=== PATIENT | male | born 1990 | race Caucasian/White ===

== ENCOUNTER 2016-10-08 11:22 | Emergency (ER) | payer BC, OTHER ==
[2016-10-08 11:32] VITALS: BP 132/79
[2016-10-08] MEDS ORDERED: Pantoprazole 40 MG Vial IVPUSH ONE (11:32)
[2016-10-08] MEDS ORDERED: Sodium Chloride 0.9% 1,000 ML IV ONE (11:32)
[2016-10-08] MEDS ORDERED: Ondansetron 4 MG/2 ML SDV IVPUSH ONE (11:32)
--- NOTE | 2016-10-08 11:38 | EDM.PDOC ---
ED HPI GENERAL MEDICAL PROBLEM - General Chief Complaint: Behavioral/Psych Stated Complaint: OVERDOSE ON MEDICATION Time Seen by Provider: 10/08/16 11:37 Source of Information: Reports: Patient - History of Present Illness INITIAL COMMENTS - FREE TEXT/NARRATIVE: HISTORY AND PHYSICAL: History of present illness: [] Patient presents ambulatory with no altered mental status or tendinitis states he took 100 aspirin at 3 AM last night with apparent suicide attempt States he has had an episode of vomiting blood otherwise no fever chills sweats chest pain shortness breath headache dizziness or palpitation no bowel or urine symptoms Review of systems: As per history of present illness and below otherwise all systems reviewed and negative. Past medical history: As per history of present illness and as reviewed below otherwise noncontributory. Surgical history: As per history of present illness and as reviewed below otherwise noncontributory. Social history: No reported history of drug or alcohol abuse. Family history: As per history of present illness and as reviewed below otherwise noncontributory. Physical exam: HEENT: Atraumatic, normocephalic, pupils reactive, negative for conjunctival pallor or scleral icterus, mucous membranes moist, throat clear, neck supple, nontender, trachea midline. Lungs: Clear to auscultation, breath sounds equal bilaterally, chest nontender. Heart: S1S2, regular, negative for clicks, rubs, or JVD. Abdomen: Soft, nondistended, nontender. Negative for masses or hepatosplenomegaly. Negative for costovertebral tenderness. Pelvis: Stable nontender. Genitourinary: Deferred. Rectal: Deferred. Extremities: Atraumatic, negative for cords or calf pain. Neurovascular unremarkable. Neuro: Awake, alert, oriented. Cranial nerves II through XII unremarkable. Cerebellum unremarkable. Motor and sensory unremarkable throughout. Exam nonfocal. Diagnostics: [] Lab as below including ABG, otherwise standard 3C workup EKG Chest one view Therapeutics: [] 1 L normal saline bolus Patient discussed with poison control Patient sent [facility] Impression: [] Suicide attempt by ingestion Definitive disposition and diagnosis as appropriate pending reevaluation and review of above. - Related Data Allergies Allergy/AdvReac Type Severity Reaction Status Date / Time Sulfa (Sulfonamide Allergy Rash Verified 10/08/16 11:32 Antibiotics) Home Meds: Home Meds . [No Known Home Meds] 10/08/16 [History] Past Medical History - Past Health History Medical/Surgical History: Denies Medical/Surgical History - Infectious Disease History Infectious Disease History: Reports: Chicken Pox, Mumps Social & Family History - Family History Family Medical History: Noncontributory - Tobacco Use Smoking Status *Q: Current Every Day Smoker Years of Tobacco use: 9 Packs/Tins Daily: 0.5 - Caffeine Use Caffeine Use: Reports: None - Recreational Drug Use Recreational Drug Use: No ED ROS GENERAL - Review of Systems Review Of Systems: ROS reveals no pertinent complaints other than HPI. ED EXAM, GENERAL - Physical Exam Exam: See Below Course - Vital Signs Last Recorded V/S: Last Vital Signs Temp 37.1 C 10/08/16 11:27 Pulse 131 H 10/08/16 11:27 Resp 24 H 10/08/16 11:27 BP 132/79 10/08/16 11:27 Pulse Ox 96 10/08/16 11:27 - Orders/Labs/Meds Orders: Active Orders 24 hr Category Date Time Status EKG Documentation Completion [RC] STAT Care 10/08/16 11:29 Active Chest 1V Frontal [CR] Stat Exams 10/08/16 11:29 Taken DRUG SCREEN, URINE [URCHEM] Stat Lab 10/08/16 11:58 Uncollected UA W/MICROSCOPIC [URIN] Stat Lab 10/08/16 11:29 Uncollected Labs: Laboratory Tests 10/08/16 10/08/16 10/08/16 Range/Units 11:48 11:48 11:48 WBC 16.09 H (4.0-11.0) K/uL RBC 5.42 (4.50-5.90) M/uL Hgb 17.6 H (13.0-17.0) g/dL Hct 48.9 (38.0-50.0) % MCV 90.2 (80.0-98.0) fL MCH 32.5 H (27.0-32.0) pg MCHC 36.0 (31.0-37.0) g/dL RDW Std Deviation 43.6 (28.0-62.0) fl RDW Coeff of Lois 13 (11.0-15.0) % Plt Count 210 (150-400) K/uL MPV 10.50 (7.40-12.00) fL Neut % (Auto) 80.5 H (48.0-80.0) % Lymph % (Auto) 12.6 L (16.0-40.0) % [place] % (Auto) 6.7 (0.0-15.0) % Eos % (Auto) 0.1 (0.0-7.0) % Baso % (Auto) 0.1 (0.0-1.5) % Neut # (Auto) 13.0 H (1.4-5.7) K/uL Lymph # (Auto) 2.0 (0.6-2.4) K/uL [place] # (Auto) 1.1 H (0.0-0.8) K/uL Eos # (Auto) 0.0 (0.0-0.7) K/uL Baso # (Auto) 0.0 (0.0-0.1) K/uL Nucleated RBC % 0.0 /100WBC Nucleated RBCs # 0 K/uL INR (0.86-1.11) APTT (18.6-31.3) SEC ABG pH (7.35-7.45) ABG pCO2 (35-45) mmHG ABG pO2 (75-100) mmHG ABG HCO3 (22-26) mEq/L ABG Total CO2 ABG Base Excess (-2.0-2.0) Sodium 144 (136-146) mmol/L Potassium 3.9 (3.5-5.1) mmol/L Chloride 111 H (98-110) mmol/L Carbon Dioxide 18 L (21-31) mmol/L BUN 13 (6.0-23.0) mg/dL Creatinine 1.1 (0.6-1.5) mg/dL Est Cr Clr Drug Dosing 115.01 mL/min Estimated GFR (MDRD) > 60.0 ml/min Glucose 109 (60-110) mg/dL Calcium 9.6 (8.8-10.8) mg/dL Total Bilirubin 0.3 (0.1-1.5) mg/dL AST 21 (5-40) IU/L ALT 31 (8-54) IU/L Alkaline Phosphatase 49 (40-150) Troponin I < 0.10 (0.0-0.29) NG/ML Total Protein 7.7 (6.0-8.0) g/dL Albumin 5.1 H (3.5-5.0) g/dL Globulin 2.6 (2.0-3.5) g/dL Albumin/Globulin Ratio 2.0 (1.3-2.8) TSH 3rd Generation 1.32 (0.47-5.0) uIU/mL Salicylates 51.7 H* (0-20) mg/dL Acetaminophen < 3.0 ug/mL Ethyl Alcohol < 10.0 mg/dL 10/08/16 10/08/16 Range/Units 11:48 12:30 WBC (4.0-11.0) K/uL RBC (4.50-5.90) M/uL Hgb (13.0-17.0) g/dL Hct (38.0-50.0) % MCV (80.0-98.0) fL MCH (27.0-32.0) pg MCHC (31.0-37.0) g/dL RDW Std Deviation (28.0-62.0) fl RDW Coeff of Lois (11.0-15.0) % Plt Count (150-400) K/uL MPV (7.40-12.00) fL Neut % (Auto) (48.0-80.0) % Lymph % (Auto) (16.0-40.0) % [place] % (Auto) (0.0-15.0) % Eos % (Auto) (0.0-7.0) % Baso % (Auto) (0.0-1.5) % Neut # (Auto) (1.4-5.7) K/uL Lymph # (Auto) (0.6-2.4) K/uL [place] # (Auto) (0.0-0.8) K/uL Eos # (Auto) (0.0-0.7) K/uL Baso # (Auto) (0.0-0.1) K/uL Nucleated RBC % /100WBC Nucleated RBCs # K/uL INR 1.03 (0.86-1.11) APTT 27.1 (18.6-31.3) SEC ABG pH 7.462 H (7.35-7.45) ABG pCO2 32 L (35-45) mmHG ABG pO2 91 (75-100) mmHG ABG HCO3 23 (22-26) mEq/L ABG Total CO2 19.1 ABG Base Excess -0.7 (-2.0-2.0) Sodium (136-146) mmol/L Potassium (3.5-5.1) mmol/L Chloride (98-110) mmol/L Carbon Dioxide (21-31) mmol/L BUN (6.0-23.0) mg/dL Creatinine (0.6-1.5) mg/dL Est Cr Clr Drug Dosing mL/min Estimated GFR (MDRD) ml/min Glucose (60-110) mg/dL Calcium (8.8-10.8) mg/dL Total Bilirubin (0.1-1.5) mg/dL AST (5-40) IU/L ALT (8-54) IU/L Alkaline Phosphatase (40-150) Troponin I (0.0-0.29) NG/ML Total Protein (6.0-8.0) g/dL Albumin (3.5-5.0) g/dL Globulin (2.0-3.5) g/dL Albumin/Globulin Ratio (1.3-2.8) TSH 3rd Generation (0.47-5.0) uIU/mL Salicylates (0-20) mg/dL Acetaminophen ug/mL Ethyl Alcohol mg/dL Meds: Medications Discontinued Medications Generic Name Dose Route Start Last Admin Trade Name Freq PRN Reason Stop Dose Admin Sodium Chloride 1,000 mls @ 999 mls/hr 10/08/16 11:32 10/08/16 12:09 Normal Saline IV 10/08/16 12:32 999 mls/hr STAT ONE Administration Ondansetron HCl 8 mg 10/08/16 11:32 10/08/16 12:09 Zofran IVPUSH 10/08/16 11:33 8 mg ONETIME ONE Administration Pantoprazole Sodium 80 mg 10/08/16 11:32 10/08/16 12:09 Protonix Iv IVPUSH 10/08/16 11:33 80 mg .BOLUS ONE Administration Sodium Bicarbonate 150 meq 10/08/16 12:35 Sodium Bicarbonate 8.4% IVPUSH 10/08/16 12:36 ONETIME ONE Departure - Departure Time of Disposition: 12:42 Disposition: Home, Self-Care 01 Condition: good Clinical Impression: Suicide attempt by drug ingestion, Self-harm - Discharge Information Referrals: PCP,None [Primary Care Provider] - Forms: ED Department Discharge - My Orders Last 24 Hours: My Active Orders 10/08/16 11:29 EKG Documentation Completion [RC] STAT Chest 1V Frontal [CR] Stat UA W/MICROSCOPIC [URIN] Stat 10/08/16 11:58 DRUG SCREEN, URINE [URCHEM] Stat - Assessment/Plan Last 24 Hours: My Active Orders 10/08/16 11:29 EKG Documentation Completion [RC] STAT Chest 1V Frontal [CR] Stat UA W/MICROSCOPIC [URIN] Stat 10/08/16 11:58 DRUG SCREEN, URINE [URCHEM] Stat
[2016-10-08 12:16] LABS: CHLORIDE,CL 111 mmol/L (98-110); SODIUM,NA 144 mmol/L (136-146)
[2016-10-08 12:28] LABS: ACETAMINOPHEN < 3.0 ug/mL
[2016-10-08] MEDS ORDERED: Sodium Bicarbonate 8.4% 50 MEQ/50 ML Syringe IVPUSH ONE (12:35)
--- NOTE | 2016-10-09 16:42 | CR ---
EXAM DATE: 10/08/16 PATIENT'S AGE: 25 Patient: ANGEL COON Facility: [place], [place] Site . Site : 1990 Study: XRay Chest [id number]/21/2017 11:55:42 AM Ordering Physician: Doctor Ramirez Final Report: HISTORY: Chest pain. Findings: Single AP view of the chest is provided. The lungs are normally expanded and clear. There is no evidence for pleural effusion or pneumothorax. Cardiac silhouette size is within normal limits. Impression: Clear lungs. Dictated by Adalid Hernandez MD @ Oct 08 2016 12:05PM (Electronic Signature) Report Signed by Proxy. CHATA
== END 2016-10-08 13:05 ==
LOC: MW.ED 11:22
DX: T39.012A Poisoning by aspirin, intentional self-harm, initial encounter (principal); F17.210 Nicotine dependence, cigarettes, uncomplicated; Z88.2 Allergy status to sulfonamides
CPT/HCPCS: 36415; 36600; 71010; 80053; 80305; 81001; 82803; 84443; 84484; 85025; 85610; 85730; 93005; 96361; 96374; 96375; 99285; C9113; G0480; J2405; J7040; 99283

== ENCOUNTER 2017-01-24 17:31 | Emergency (ER) | payer OTHER ==
[2017-01-24] MEDS ORDERED: Ketorolac 30 MG/ML SDV IVPUSH ONE (18:44)
[2017-01-24] MEDS ORDERED: Sodium Chloride 0.9% 1,000 ML IV ONE (18:44)
[2017-01-24 19:33] LABS: CHLORIDE,CL 109 mmol/L (98-110); SODIUM,NA 142 mmol/L (136-146)
--- NOTE | 2017-01-24 19:35 | EDM.PDOC ---
ED HPI GENERAL MEDICAL PROBLEM - General Chief Complaint: Abdominal Pain Stated Complaint: ABDOMNICAL PAIN Time Seen by Provider: 01/24/17 17:33 Source of Information: Reports: Patient History Limitations: Reports: No Limitations - History of Present Illness INITIAL COMMENTS - FREE TEXT/NARRATIVE: History of present illness: 26-year-old male comes in complaining of right upper quadrant pain. Indicates it 's gotten progressively worse over the last 3 days to the point that he becomes nauseated and vomits. Patient indicates that it is worse after meals and after the initial spike of 8/10 for approximately an hour and received to a 4-6/10. Review of systems: As per history of present illness and below otherwise all systems reviewed and negative. Past medical history: As per history of present illness and as reviewed below otherwise noncontributory. Surgical history: As per history of present illness and as reviewed below otherwise noncontributory. Social history: No reported history of drug or alcohol abuse. Family history: As per history of present illness and as reviewed below otherwise noncontributory. Physical exam: HEENT: Atraumatic, normocephalic, pupils reactive, negative for conjunctival pallor or scleral icterus, mucous membranes moist, throat clear, neck supple, nontender, trachea midline. Lungs: Clear to auscultation, breath sounds equal bilaterally, chest nontender. Sporadic cough with noted increase in pain status post cough. Heart: S1S2, regular, negative for clicks, rubs, or JVD. Abdomen: Soft, protuberant with right upper quadrant tenderness. Negative for masses or hepatosplenomegaly. Negative for costovertebral tenderness. Pelvis: Stable nontender. Genitourinary: Deferred. Rectal: Deferred. Extremities: Atraumatic, negative for cords or calf pain. Neurovascular unremarkable. Neuro: Awake, alert, oriented. Cranial nerves II through XII unremarkable. Cerebellum unremarkable. Motor and sensory unremarkable throughout. Exam nonfocal. Diagnostics: [CBC, CMP, UA, CT of abdomen] Therapeutics: [IV fluid, Toradol, Zofran] Impression: [#1 bronchitis #2 costochondritis] Plan: [Inhaler, spacer, Medrol Dosepak, T3 for night] Definitive disposition and diagnosis as appropriate pending reevaluation and review of above. abdomen Pain Score (Numeric/FACES): 3 - Related Data Allergies Allergy/AdvReac Type Severity Reaction Status Date / Time Sulfa (Sulfonamide Allergy Rash Verified 01/24/17 17:50 Antibiotics) Home Meds: Home Meds Albuterol Sulfate [Proair Hfa] 2 puff IH Q6HR #1 hfa.aer.ad 01/24/17 [Rx] FLUoxetine [PROzac] 20 mg PO DAILY 01/24/17 [History] Inhaler, Assist Devices [Space Chamber Plus] 1 each MC ASDIRECTED #1 spacer 11/04 [Rx] methylPREDNISolone [Medrol] 4 mg PO DAILY #21 tab.ds.pk 01/24/17 [Rx] Past Medical History - Past Health History Medical/Surgical History: Denies Medical/Surgical History - Infectious Disease History Infectious Disease History: Reports: Chicken Pox, Mumps Social & Family History - Family History Family Medical History: Noncontributory - Tobacco Use Smoking Status *Q: Current Every Day Smoker Years of Tobacco use: 12 Packs/Tins Daily: 1 - Caffeine Use Caffeine Use: Reports: Coffee - Recreational Drug Use Recreational Drug Use: No ED ROS GENERAL - Review of Systems Review Of Systems: See Below (See history of present illness) ED EXAM, GI/ABD - Physical Exam Exam: See Below (See history of present illness) Course - Vital Signs Last Recorded V/S: Last Vital Signs Temp 36.6 C 01/24/17 20:58 Pulse 56 L 01/24/17 20:58 Resp 16 01/24/17 20:58 BP 113/57 L 01/24/17 20:58 Pulse Ox 99 01/24/17 20:58 - Orders/Labs/Meds Orders: Active Orders 24 hr Category Date Time Status Abdomen Pelvis w Cont [CT] Stat Exams 01/24/17 18:53 Taken Labs: Laboratory Tests 01/24/17 01/24/17 01/24/17 Range/Units 18:56 18:56 19:40 WBC 10.37 (4.0-11.0) K/uL RBC 4.95 (4.50-5.90) M/uL Hgb 16.0 (13.0-17.0) g/dL Hct 44.9 (38.0-50.0) % MCV 90.7 (80.0-98.0) fL MCH 32.3 H (27.0-32.0) pg MCHC 35.6 (31.0-37.0) g/dL RDW Std Deviation 43.1 (28.0-62.0) fl RDW Coeff of Lois 13 (11.0-15.0) % Plt Count 193 (150-400) K/uL MPV 10.50 (7.40-12.00) fL Neut % (Auto) 54.3 (48.0-80.0) % Lymph % (Auto) 36.2 (16.0-40.0) % [place] % (Auto) 7.6 (0.0-15.0) % Eos % (Auto) 1.7 (0.0-7.0) % Baso % (Auto) 0.2 (0.0-1.5) % Neut # (Auto) 5.6 (1.4-5.7) K/uL Lymph # (Auto) 3.8 H (0.6-2.4) K/uL [place] # (Auto) 0.8 (0.0-0.8) K/uL Eos # (Auto) 0.2 (0.0-0.7) K/uL Baso # (Auto) 0.0 (0.0-0.1) K/uL Nucleated RBC % 0.0 /100WBC Nucleated RBCs # 0 K/uL Sodium 142 (136-146) mmol/L Potassium 3.9 (3.5-5.1) mmol/L Chloride 109 (98-110) mmol/L Carbon Dioxide 24 (21-31) mmol/L BUN 16 (6.0-23.0) mg/dL Creatinine 0.9 (0.6-1.5) mg/dL Est Cr Clr Drug Dosing 139.33 mL/min Estimated GFR (MDRD) > 60.0 ml/min Glucose 90 (60-110) mg/dL Calcium 9.7 (8.8-10.8) mg/dL Total Bilirubin 0.4 (0.1-1.5) mg/dL AST 18 (5-40) IU/L ALT 24 (8-54) IU/L Alkaline Phosphatase 53 (40-150) Total Protein 7.4 (6.0-8.0) g/dL Albumin 4.7 (3.5-5.0) g/dL Globulin 2.7 (2.0-3.5) g/dL Albumin/Globulin Ratio 1.7 (1.3-2.8) Amylase 42 (10-90) U/L Lipase 33 (7-80) U/L Urine Color YELLOW Urine Appearance CLEAR Urine pH 6.0 (5.0-8.0) Ur Specific [place] 1.025 (1.001-1.035) Urine Protein NEGATIVE (NEGATIVE) mg/dL Urine Glucose (UA) NEGATIVE (NEGATIVE) mg/dL Urine Ketones NEGATIVE (NEGATIVE) mg/dL Urine Occult Blood NEGATIVE (NEGATIVE) Urine Nitrite NEGATIVE (NEGATIVE) Urine Bilirubin NEGATIVE (NEGATIVE) Urine Urobilinogen 0.2 (<2.0) EU/dL Ur Leukocyte Esterase TRACE (NEGATIVE) Urine RBC 0-2 (0-2/HPF) Urine WBC 4-8 (0-5/HPF) Ur Epithelial Cells FEW (NONE-FEW) Urine Bacteria FEW (NEGATIVE) Urine Mucus LIGHT (NONE-MOD) Meds: Medications Discontinued Medications Generic Name Dose Route Start Last Admin Trade Name Freq PRN Reason Stop Dose Admin Sodium Chloride 1,000 mls @ 999 mls/hr 01/24/17 18:44 01/24/17 18:59 Normal Saline IV 01/24/17 19:44 999 mls/hr STAT ONE Administration Iopamidol 100 ml 01/24/17 20:30 01/24/17 20:38 Isovue Multipack-370 (76%) IVPUSH 01/24/17 20:31 100 ml ONETIME STA Administration Ketorolac Tromethamine 30 mg 01/24/17 18:44 01/24/17 19:00 Toradol IVPUSH 01/24/17 18:45 30 mg ONETIME ONE Administration Departure - Departure Time of Disposition: 21:45 Disposition: Home, Self-Care 01 Condition: Good Clinical Impression: Bronchitis, Costochondritis - Discharge Information Referrals: PCP,None [Primary Care Provider] - Forms: ED Department Discharge Additional Instructions: The following information is given to patients seen in the emergency department who are being discharged to home. This information is to outline your options for follow-up care. We provide all patients seen in our emergency department with a follow-up referral. The need for follow-up, as well as the timing and circumstances, are variable depending upon the specifics of your emergency department visit. If you don't have a primary care physician on staff, we will provide you with a referral. We always advise you to contact your personal physician following an emergency department visit to inform them of the circumstance of the visit and for follow-up with them and/or the need for any referrals to a consulting specialist. The emergency department will also refer you to a specialist when appropriate. This referral assures that you have the opportunity for follow-up care with a specialist. All of these measure are taken in an effort to provide you with optimal care, which includes your follow-up. Under all circumstances we always encourage you to contact your private physician who remains a resource for coordinating your care. When calling for follow-up care, please make the office aware that this follow-up is from your recent emergency room visit. If for any reason you are refused follow-up, please contact the [facility] Emergency Department at and asked to speak to the emergency department charge nurse. Take medication as directed Follow-up with PCP 1-2 days Return to ED as needed as discussed - My Orders Last 24 Hours: My Active Orders 01/24/17 18:53 Abdomen Pelvis w Cont [CT] Stat - Assessment/Plan Last 24 Hours: My Active Orders 01/24/17 18:53 Abdomen Pelvis w Cont [CT] Stat
[2017-01-24] MEDS ORDERED: Iopamidol 755 MG/ML 500 ML Multipack Bottle IVPUSH STA (20:30)
[2017-01-24 22:10] VITALS: BP 118/62
--- NOTE | 2017-01-25 17:11 | CT ---
EXAM DATE: 01/24/17 PATIENT'S AGE: 26 Patient: ANGEL COON Facility: [place], [place] Site . Site : 1990 Study: CT Abdomen/Pelvis W CONT [id number]/6/[id number] 8:53:48 PM Ordering Physician: Doctor Ramirez Final Report: INDICATION: ABDOMINAL PAIN WITH NAUSEA AND VOMITING TECHNIQUE: CT abdomen and pelvis acquired with IV contrast. 100 ML ISOVUE 370 COMPARISON: None FINDINGS: Lower chest: Unremarkable. Liver: Unremarkable. Spleen: Unremarkable. Pancreas: Unremarkable. Gallbladder and bile ducts: Unremarkable. Kidneys: Unremarkable. Adrenal glands: Unremarkable. GI tract: Unremarkable. Appendix is normal. Vascular structures: Negative. No sign of aneurysm. Lymph nodes: Unremarkable. Miscellaneous: Unremarkable. No free air or significant free fluid. Pelvic Organs: Unremarkable. Bones: Unremarkable for age. IMPRESSION: No acute abnormality of the abdomen and pelvis. Dictated by Carlos Villalpando MD @ 01/24/2017 9:21:02 PM Dictated by: Carlos Villalpando MD @ 01/24/2017 21:24:46 (Electronic Signature) Report Signed by Proxy. UNITED HEALTH SERVICESJessica
== END 2017-01-24 22:07 | disposition home or self-care (01) ==
LOC: MW.ED 17:31
DX: J40 Bronchitis, not specified as acute or chronic (principal); M94.0 Chondrocostal junction syndrome [Tietze]; F17.210 Nicotine dependence, cigarettes, uncomplicated; Z79.899 Other long term (current) drug therapy; Z88.2 Allergy status to sulfonamides
CPT/HCPCS: 74177; 80053; 81001; 82150; 83690; 85025; 96361; 96374; 99284; J1885; J7040; Q9967; 99282

== ENCOUNTER 2017-09-18 18:54 | Emergency (ER) | payer OTHER ==
[2017-09-18] MEDS ORDERED: Ketorolac 30 MG/ML SDV IVPUSH ONE (19:16)
[2017-09-18] MEDS ORDERED: Sodium Chloride 0.9% 1,000 ML IV ONE (19:16)
[2017-09-18] MEDS ORDERED: Diphtheria,Pertussis(Acell),Tetanus Vaccine 0.5 ML Syringe IM ONE (19:24)
[2017-09-18] MEDS ORDERED: Bacitracin Oint 1 GM U/D Packet TOP ONE (19:24)
[2017-09-18] MEDS ORDERED: Lidocaine 1% 20 ML MDV INJECT ONE (19:24)
--- NOTE | 2017-09-18 19:24 | EDM.PDOC ---
ED HPI GENERAL MEDICAL PROBLEM - General Chief Complaint: Laceration Stated Complaint: FALL/LACERATION BRUISED RT EYE Time Seen by Provider: 09/18/17 19:12 Source of Information: Reports: Patient History Limitations: Reports: No Limitations - History of Present Illness INITIAL COMMENTS - FREE TEXT/NARRATIVE: HISTORY AND PHYSICAL: History of present illness: Patient is a 26-year-old male who presents to the emergency room after a syncopal events and falling hitting his face. He states he was getting up to use the bathroom and "the next thing I knew I was on the ground". He does have 2 small lacerations across the bridge of his nose along with bruising and swelling around the right orbit. Prior to his syncopal episode he had no complaints or concerns and was feeling overall well. Unsure of his last tetanus Review of systems: As per history of present illness and below otherwise all systems reviewed and negative. Past medical history: As per history of present illness and as reviewed below otherwise noncontributory. Surgical history: As per history of present illness and as reviewed below otherwise noncontributory. Social history: No reported history of drug or alcohol abuse. Family history: As per history of present illness and as reviewed below otherwise noncontributory. Physical exam: General: Well-developed and well-nourished 26-year-old male. Alert and oriented. Nontoxic appearing and in no acute distress. HEENT: Deformity noted to the bridge of the nose along with soft tissue swelling. Bruising and swelling noted around the right orbit. Patient is able to open the right eye without assistance. 2 cm superficial laceration above the lash line, this is partial thickness and does not go through the lid itself. No intraocular entrapment noted has range of motion. Globe is intact, no injury or hyphema. Two parellel lacerations along the bridge of the nose, 1.5 cm and 1 cm. Small puncate noted to top of scalp along hairline. Otherwise he is normocephalic, pupils equal and reactive bilaterally, negative for conjunctival pallor or scleral icterus, mucous membranes moist, throat clear, neck supple, nontender, trachea midline. No drooling or trismus noted. No meningeal signs Lungs: Clear to auscultation, breath sounds equal bilaterally, chest nontender. Heart: S1S2, regular rate and rhythm without overt murmur Abdomen: Soft, nondistended, nontender. Negative for masses or hepatosplenomegaly. Negative for costovertebral tenderness. Pelvis: Stable nontender. Genitourinary: Deferred. Rectal: Deferred. Skin: See HEENT assessment, other skin is intact, warm, dry. No lesions or rashes noted. Extremities: Moves all per self without difficulty or deficits. Full ROM and negative for cords or calf pain. Neurovascular unremarkable. Neuro: Awake, alert, oriented. Cranial nerves II through XII unremarkable. Cerebellum unremarkable. Motor and sensory unremarkable throughout. Exam nonfocal. Notes: CT of the facial bone shows a comminuted bilateral nasal bone fracture with a leftward angulation trace right orbital emphysema is present. CT is unremarkable with no fracture, bleeding or masses. Cervical spine is unremarkable. Labs, EKG, and CXR are unremarkable. Vital signs are stable. Orthostatics are unremarkable. The Rocephin for open fracture given in the ER. This information was shared with the patient. I did offer the patient admission for observation as he did have an unexplained syncopal event. He declines admission. He is aware of the risks of being discharged at this time, except those risks. The lacerations above the nose were cleansed with chlorhexidine. 1% lidocaine was used to anesthetize the area. Sterile technique and customary procedures were followed. Lower laceration was closed with 4-0 Nylon, #2 interrupted sutures. Upper laceration was closed with 4-0 Nylon, #3 interrupt sutures. Patient tolerated well. 2 cm superficial laceration above the lash line, this is partial thickness and does not go through the lid itself. The orbit is intact and has full ROM of all orbital muscles. No pain with ROM. Dr Lr ( Opthamologist on-call) was consulted on this case about the "Trace right orbital emphysema being present". I did share his physical findings along with the patient's history and he states that there does not appear to be any need for acute intervention. He would like to see the patient tomorrow at 3 PM, for further evaluation and reexamination. All this information was shared with the patient. I'll prescribe Hoagland, Zofran and Keflex. Diagnostics: CBC, CMP, troponin, KG, one view chest, head CT, cervical spine CT, maxillofacial CT orthostatic vital signs Therapeutics: Tdap, NS, Toradol, tetanus, lidocaine, Rocephin Impression: Head Injury Nasal bone fracture Syncope Plan: 1. Please review and follow the head injury instructions that were given to you. 2. Rest and ice to painful areas. Tylenol and/or ibuprofen as needed for pain management. A prescription for Hoagland has been given to you for moderate to severe pain. You may take 1-2 tablets every 4-6 hours. This medication is a narcotic and will cause drowsiness so do not take it while driving or needing to be functioning outside of the house. Zofran as needed for nausea prevention. 3. Dr. Lr, Mica Builder from [facility], was informed of your case to see you tomorrow around 3 PM for reevaluation of your right eye. 4. Please follow-up with your primary care provider or the plastic surgeon for further evaluation and management. Return to the ED as needed and as discussed. Definitive disposition and diagnosis as appropriate pending reevaluation and review of above. Onset: Today Duration: Minutes: Location: Reports: Head facial area Pain Score (Numeric/FACES): 7 - Related Data Allergies Allergy/AdvReac Type Severity Reaction Status Date / Time Sulfa (Sulfonamide Allergy Rash Verified 09/18/17 19:09 Antibiotics) Home Meds: Home Meds . [No Known Home Meds] 09/18/17 [History] Past Medical History - Past Health History Medical/Surgical History: Denies Medical/Surgical History - Infectious Disease History Infectious Disease History: Reports: Chicken Pox, Mumps Social & Family History - Family History Family Medical History: Noncontributory - Tobacco Use Smoking Status *Q: Current Every Day Smoker Years of Tobacco use: 12 Packs/Tins Daily: 1 - Caffeine Use Caffeine Use: Reports: Coffee - Recreational Drug Use Recreational Drug Use: No ED ROS GENERAL - Review of Systems Review Of Systems: ROS reveals no pertinent complaints other than HPI. ED EXAM, SKIN/RASH Exam: See Below (See dictation) Course - Vital Signs Last Recorded V/S: Last Vital Signs Temp 98 F 09/18/17 19:10 Pulse 88 09/18/17 19:10 Resp 18 09/18/17 19:10 BP 126/68 09/18/17 19:10 Pulse Ox 98 09/18/17 19:10 Orthostatic Blood Pressure [] 103/73 Orthostatic Blood Pressure [] 110/62 Orthostatic Blood Pressure [] 118/62 - Orders/Labs/Meds Orders: Active Orders 24 hr Category Date Time Status EKG Documentation Completion [RC] STAT Care 09/18/17 19:16 Active Orthostatic Vital Signs [RC] ASDIRECTED Care 09/18/17 19:16 Active Vaccines to be Administered [RC] PER UNIT ROUTINE Care 09/18/17 19:24 Active Cervical Spine wo Cont [CT] Stat Exams 09/18/17 19:15 Taken Chest 1V Frontal [CR] Stat Exams 09/18/17 19:16 Taken Head wo Cont [CT] Stat Exams 09/18/17 19:15 Taken Max Facial Sinus wo Cont [CT] Stat Exams 09/18/17 19:15 Taken cefTRIAXone [Rocephin] 1,000 mg Med 09/18/17 21:30 Active Dextrose 5% in Water 50 ml IM ONETIME Medication Orders Ceftriaxone Sodium 1,000 mg/ (Dextrose/Water) 50 mls @ 100 mls/hr IM ONETIME ONE Stop: 09/18/17 21:59 Labs: Laboratory Tests 09/18/17 09/18/17 Range/Units 19:25 19:25 WBC 8.63 (4.0-11.0) K/uL RBC 5.12 (4.50-5.90) M/uL Hgb 16.4 (13.0-17.0) g/dL Hct 46.0 (38.0-50.0) % MCV 89.8 (80.0-98.0) fL MCH 32.0 (27.0-32.0) pg MCHC 35.7 (31.0-37.0) g/dL RDW Std Deviation 43.6 (28.0-62.0) fl RDW Coeff of Lois 13 (11.0-15.0) % Plt Count 188 (150-400) K/uL MPV 10.00 (7.40-12.00) fL Neut % (Auto) 53.8 (48.0-80.0) % Lymph % (Auto) 37.1 (16.0-40.0) % [place] % (Auto) 7.4 (0.0-15.0) % Eos % (Auto) 1.4 (0.0-7.0) % Baso % (Auto) 0.3 (0.0-1.5) % Neut # (Auto) 4.6 (1.4-5.7) K/uL Lymph # (Auto) 3.2 H (0.6-2.4) K/uL [place] # (Auto) 0.6 (0.0-0.8) K/uL Eos # (Auto) 0.1 (0.0-0.7) K/uL Baso # (Auto) 0.0 (0.0-0.1) K/uL Nucleated RBC % 0.0 /100WBC Nucleated RBCs # 0 K/uL Sodium 141 (136-148) mmol/L Potassium 3.4 L (3.5-5.1) mmol/L Chloride 105 (98-107) mmol/L Carbon Dioxide 24.8 (21.0-32.0) mmol/L BUN 13 (7.0-18.0) mg/dL Creatinine 1.0 (0.8-1.3) mg/dL Est Cr Clr Drug Dosing 125.40 mL/min Estimated GFR (MDRD) > 60.0 ml/min Glucose 123 H (74-106) mg/dL Calcium 9.4 (8.5-10.1) mg/dL Total Bilirubin 0.3 (0.2-1.0) mg/dL AST 26 (15-37) IU/L ALT 48 (14-63) IU/L Alkaline Phosphatase 53 (46-116) U/L Troponin I < 0.050 (0.000-0.056) ng/mL Total Protein 7.5 (6.4-8.2) g/dL Albumin 4.6 (3.4-5.0) g/dL Globulin 2.9 (2.0-3.5) g/dL Albumin/Globulin Ratio 1.6 (1.3-2.8) Meds: Medications Generic Name Dose Route Start Last Admin Trade Name Freq PRN Reason Stop Dose Admin Ceftriaxone Sodium 1,000 mg/ 50 mls @ 100 mls/hr 09/18/17 21:30 Dextrose/Water IM 09/18/17 21:59 ONETIME ONE Discontinued Medications Generic Name Dose Route Start Last Admin Trade Name Freq PRN Reason Stop Dose Admin Bacitracin 1 dose 09/18/17 19:24 09/18/17 19:58 Bacitracin Oint 1 Gm TOP 09/18/17 19:25 1 dose ONETIME ONE Administration Diphtheria/Tetanus/Acell Pertussis 0.5 ml 09/18/17 19:24 09/18/17 19:58 Adacel IM 09/18/17 19:25 0.5 ml .ONCE ONE Administration Sodium Chloride 1,000 mls @ 999 mls/hr 09/18/17 19:16 09/18/17 19:57 Normal Saline IV 09/18/17 20:16 999 mls/hr STAT ONE Administration Ceftriaxone Sodium/Dextrose 1 50 mls @ 100 mls/hr 09/18/17 21:10 gm/ Premix IV 09/18/17 21:39 ONETIME ONE Ketorolac Tromethamine 30 mg 09/18/17 19:16 09/18/17 19:58 Toradol IVPUSH 09/18/17 19:17 30 mg ONETIME ONE Administration Lidocaine HCl 20 ml 09/18/17 19:24 09/18/17 19:57 Xylocaine 1% INJECT 09/18/17 19:25 20 ml ONETIME ONE Administration Departure - Departure Time of Disposition: 21:08 Disposition: Home, Self-Care 01 Clinical Impression: Nasal bone fractures Qualifiers: Encounter type: initial encounter Fracture type: open Qualified Code(s): S02.2XXB - Fracture of nasal bones, initial encounter for open fracture Head injury Qualifiers: Encounter type: initial encounter Qualified Code(s): S09.90XA - Unspecified injury of head, initial encounter Syncope Qualifiers: Syncope type: unspecified Qualified Code(s): R55 - Syncope and collapse - Discharge Information Instructions: Nasal Fracture, [id number], Laceration Care, Adult, Easy-to- Read, Syncope, [id number] Referrals: PCP,None [Primary Care Provider] - Forms: ED Department Discharge Additional Instructions: The following information is given to patients seen in the emergency department who are being discharged to home. This information is to outline your options for follow-up care. We provide all patients seen in our emergency department with a follow-up referral. The need for follow-up, as well as the timing and circumstances, are variable depending upon the specifics of your emergency department visit. If you don't have a primary care physician on staff, we will provide you with a referral. We always advise you to contact your personal physician following an emergency department visit to inform them of the circumstance of the visit and for follow-up with them and/or the need for any referrals to a consulting specialist. The emergency department will also refer you to a specialist when appropriate. This referral assures that you have the opportunity for follow-up care with a specialist. All of these measure are taken in an effort to provide you with optimal care, which includes your follow-up. Under all circumstances we always encourage you to contact your private physician who remains a resource for coordinating your care. When calling for follow-up care, please make the office aware that this follow-up is from your recent emergency room visit. If for any reason you are refused follow-up, please contact the [facility] Emergency Department at and asked to speak to the emergency department charge nurse. [facility] [address] [place] [id number] 1. Please review and follow the head injury instructions that were given to you. Stitches to be removed in 5-7 days. Continue to monitor for signs of infection. 2. Rest and ice to painful areas. Tylenol and/or ibuprofen as needed for pain management. A prescription for Hoagland has been given to you for moderate to severe pain. You may take 1-2 tablets every 4-6 hours. This medication is a narcotic and will cause drowsiness so do not take it while driving or needing to be functioning outside of the house. Zofran as needed for nausea prevention. 3. Dr. Lr, Mica Builder from [facility], was informed of your case to see you tomorrow around 3 PM for reevaluation of your right eye. 4. Please follow-up with your primary care provider or the plastic surgeon for further evaluation and management. Return to the ED as needed and as discussed. - My Orders Last 24 Hours: My Active Orders 09/18/17 19:15 Cervical Spine wo Cont [CT] Stat Head wo Cont [CT] Stat Max Facial Sinus wo Cont [CT] Stat 09/18/17 19:16 EKG Documentation Completion [RC] STAT Orthostatic Vital Signs [RC] ASDIRECTED Chest 1V Frontal [CR] Stat 09/18/17 19:24 Vaccines to be Administered [RC] PER UNIT ROUTINE - Assessment/Plan Last 24 Hours: My Active Orders 09/18/17 19:15 Cervical Spine wo Cont [CT] Stat Head wo Cont [CT] Stat Max Facial Sinus wo Cont [CT] Stat 09/18/17 19:16 EKG Documentation Completion [RC] STAT Orthostatic Vital Signs [RC] ASDIRECTED Chest 1V Frontal [CR] Stat 09/18/17 19:24 Vaccines to be Administered [RC] PER UNIT ROUTINE
[2017-09-18 19:53] LABS: CHLORIDE,CL 105 mmol/L (98-107); SODIUM,NA 141 mmol/L (136-148)
[2017-09-18] MEDS ORDERED: cefTRIAXone 1 GM in Premix Bag 1 BAG IV ONE (21:10)
[2017-09-18] MEDS ORDERED: cefTRIAXone 1,000 MG in Dextrose 5% in Water 50 ML IM ONE ×2 (21:30)
[2017-09-18] MEDS ORDERED: cefTRIAXone 1,000 MG in Dextrose 5% in Water 50 ML IV ONE ×2 (21:38)
[2017-09-18 22:19] VITALS: BP 102/72
--- NOTE | 2017-09-19 10:46 | CR ---
EXAM DATE: 09/18/17 PATIENT'S AGE: 26 Patient: ANGEL COON Facility: [place], [place] Site . Site : 1990 Study: XRay Chest [id number]/1/2018 8:02:30 PM Ordering Physician: Doctor Ramirez Final Report: INDICATION: fall/loc INDICATION: Chest pain after fall. TECHNIQUE: Single view. COMPARISON: 10/08/2016. FINDINGS: Heart size is normal. The lungs are free of infiltrate. There is no pneumothorax. No subcutaneous gas is seen. No significant pleural fluid is seen. IMPRESSION: Clear chest. Dictated by Ian Dale MD @ 09/18/2017 8:04:42 PM Dictated by: Ian Dale MD @ 09/18/2017 20:04:51 (Electronic Signature) Report Signed by Proxy. MTDJessica
--- NOTE | 2017-09-19 10:48 | CT ---
EXAM DATE: 09/18/17 PATIENT'S AGE: 26 Patient: ANGEL COON Facility: [place], [place] Site . Site : 1990 Study: CT Head [id number]/1/2018 8:06:21 PM Ordering Physician: Doctor Ramirez Final Report: INDICATION: Fall today and LOC Edema and LAC to R eye and nasal areas INDICATION: Patient with a history of a fall with loss of consciousness and right facial trauma. TECHNIQUE: 3 mm axial imaging has been performed through the brain. Sagittal and coronal reconstructions have been obtained. FINDINGS: The ventricles, sulci, and cisterns are within normal limits. There is no mass lesion, midline shift, or intracerebral hemorrhage identified. Incidental cavum septum pellucidum is identified which is a normal anatomical variant. There is no visualized skull fracture. Comminuted fracture deformity nasal bone is noted. Please see facial bone CT. There is a rounded opacification in the right maxillary sinus. Mastoid air cells are clear. IMPRESSION: 1. No acute intracerebral hemorrhage or midline shift is noted. 2. No visualized skull fracture noted. 3. Comminuted nasal bone fracture is noted. Please see facial bone CT. Dictated by Ian Dale MD @ 09/18/2017 8:16:40 PM Dictated by: Ian Dael MD @ 09/18/2017 20:16:48 (Electronic Signature) Report Signed by Proxy. [facility]
--- NOTE | 2017-09-19 10:49 | CT ---
EXAM DATE: 09/18/17 PATIENT'S AGE: 26 Patient: ANGEL COON Facility: [place], [place] Site . Site : 1990 Study: CT Spine Cervical [id number]/1/2018 8:06:47 PM Ordering Physician: Doctor Ramirez Final Report: INDICATION: Fall with neck pain TECHNIQUE: CT cervical spine without i.v. contrast. Coronal and sagittal reformats were obtained. CONTRAST: None COMPARISON: None FINDINGS: Alignment: Unremarkable. Bone: No acute fractures or aggressive bone lesions are identified. Disc: The disc spaces are unremarkable in appearance. The facet joints are unremarkable. Soft tissue: The prevertebral soft tissues are unremarkable in appearance. The visualized lung apices and mediastinum are unremarkable. IMPRESSION: 1. No acute osseous injuries are identified. Please note that all CT scans at this facility use dose modulation, iterative reconstruction, and/or weight-based dosing when appropriate to reduce radiation dose to as low as reasonably achievable. Dictated by: Tenzin Alex MD @ 09/18/2017 20:16:13 (Electronic Signature) Report Signed by Proxy. [facility]
--- NOTE | 2017-09-19 10:52 | CT ---
EXAM DATE: 09/18/17 PATIENT'S AGE: 26 Patient: ANGEL COON Facility: [place], [place] Site . Site : 1990 Study: CT Facial [id number]/1/2018 8:08:54 PM Ordering Physician: Doctor Ramirez Final Report: INDICATION: Fall today and loss of consciousness, Edema and laceration to right eye and nasal areas TECHNIQUE: CT maxillofacial without i.v. contrast. Coronal and sagittal reformats were obtained. CONTRAST: None COMPARISON: None FINDINGS: Bone: Comminuted bilateral nasal bone fractures are present with leftward angulation. There is a nondisplaced fracture involving the perpendicular plate of the ethmoid bone. Soft tissue emphysema seen along the nasal soft tissues. Joint: The temporomandibular joints are unremarkable in appearance. Sinus: A large retention cyst or polyp seen at the base of the right maxillary sinus. The ostiomeatal units are patent. The nasal turbinates are normal. The nasal septum is midline and intact. Orbit: Trace right orbital emphysema is present. Both globes are unremarkable in appearance by CT. Mild right preseptal swelling and edema is noted. Soft tissue: Unremarkable otherwise. IMPRESSIONS: 1. Comminuted bilateral nasal bone fractures are present with leftward angulation. 2. Trace right orbital emphysema is present. Correlation with physical examination is recommended to exclude a puncture injury. Dictated by Tenzin Alex MD @ 09/18/2017 8:22:17 PM Please note that all CT scans at this facility use dose modulation, iterative reconstruction, and/or weight-based dosing when appropriate to reduce radiation dose to as low as reasonably achievable. Dictated by: Tenzin Alex MD @ 09/18/2017 20:22:25 (Electronic Signature) Report Signed by Proxy. [facility]
== END 2017-09-18 22:17 | disposition home or self-care (01) ==
LOC: MW.ED 18:54
DX: S02.2XXA Fracture of nasal bones, initial encounter for closed fracture (principal); S01.21XA Laceration without foreign body of nose, initial encounter; S09.90XA Unspecified injury of head, initial encounter; R55 Syncope and collapse; F17.210 Nicotine dependence, cigarettes, uncomplicated; W18.30XA Fall on same level, unspecified, initial encounter; Z88.2 Allergy status to sulfonamides; Z23 Encounter for immunization
CPT/HCPCS: 12013; 36415; 70450; 70486; 71045; 72125; 80053; 84484; 85025; 90471; 90715; 93005; 96361; 96365; 96375; 99284; J0696; J1885; J7040; J7060

== ENCOUNTER 2017-09-24 14:30 | Emergency (ER) | payer OTHER ==
[2017-09-24 14:47] VITALS: BP 125/77
== END 2017-09-24 14:48 | disposition left against medical advice (07) ==
LOC: MW.ED 14:30
DX: Z53.21 Procedure and treatment not carried out due to patient leaving prior to being seen by health care provider (principal)

== ENCOUNTER 2017-09-27 16:30 | Day surgery (SDC) | payer OTHER ==
[2017-09-27] MEDS ORDERED: Sodium Chloride 0.9% 1,000 ML IV SCH (17:30)
[2017-09-27] MEDS ORDERED: Midazolam 1 MG/ML 2 ML SDV ONE (17:52)
[2017-09-27] MEDS ORDERED: Glycopyrrolate 0.2 MG/ML SDV ONE (17:52)
[2017-09-27] MEDS ORDERED: Ondansetron 4 MG/2 ML SDV ONE (17:52)
[2017-09-27] MEDS ORDERED: fentaNYL 100 MCG/2 ML SDV ONE (17:52)
[2017-09-27] MEDS ORDERED: Propofol 200 MG/20 ML SDV ONE (17:52)
--- NOTE | 2017-09-27 18:26 | PCM.PREANE ---
Preanesthetic Assessment - Anesthesia/Transfusion/Family Hx Anesthesia History: No Prior Anesthesia Family History of Anesthesia Reaction: No Transfusion History: No Prior Transfusion(s) Intubation History: Unknown - Review of Systems General: No Symptoms Pulmonary: No Symptoms Cardiovascular: No Symptoms Gastrointestinal: No Symptoms Neurological: No Symptoms Other: Reports: None - Physical Assessment Height: 1.85 m Weight: 121.926 kg ASA Class: 2E Mental Status: Alert & Oriented x3 Airway Class: Mallampati = 2 Dentition: Reports: Normal Dentition, [place](s) (right upper (back) x1) Thyro-Mental Finger Breadths: 3 Mouth Opening Finger Breadths: 3 ROM/Head Extension: Full Lungs: Clear to Auscultation, Normal Respiratory Effort Cardiovascular: Regular Rate, Regular Rhythm - Allergies Allergies/Adverse Reactions: Allergies Allergy/AdvReac Type Severity Reaction Status Date / Time Sulfa (Sulfonamide Allergy Rash Verified 09/24/17 14:47 Antibiotics) - Blood Blood Available: No - Anesthesia Plan Pre-Op Medication Ordered: None - Acknowledgements Anesthesia Type Planned: General Anesthesia Pt an Appropriate Candidate for the Planned Anesthesia: Yes Alternatives and Risks of Anesthesia Discussed w Pt/Guardian: Yes Pt/Guardian Understands and Agrees with Anesthesia Plan: Yes PreAnesthesia Questionnaire - Past Health History Medical/Surgical History: Denies Medical/Surgical History HEENT History: Reports: Other (See Below) (closed nasal bone fx) Cardiovascular History: Reports: None Respiratory History: Reports: Pneumonia, Recurrent Gastrointestinal History: Reports: None Genitourinary History: Reports: None Musculoskeletal History: Reports: None Neurological History: Reports: None Psychiatric History: Reports: Anxiety, Depression Endocrine/Metabolic History: Reports: Obesity/BMI 30+ Hematologic History: Reports: None Immunologic History: Reports: None Oncologic (Cancer) History: Reports: None Dermatologic History: Reports: None - Infectious Disease History Infectious Disease History: Reports: Chicken Pox, Influenza, Mumps - Past Surgical History Head Surgeries/Procedures: Reports: None - SUBSTANCE USE Smoking Status *Q: Current Every Day Smoker (1/2 ppd) Tobacco Use Within Last Twelve Months: Cigarettes Recreational Drug Use History: No - HOME MEDS Home Medications: Home Meds . [No Known Home Meds] 09/18/17 [History] - CURRENT (IN HOUSE) MEDS Current Meds: Current Medications Sodium Chloride (Normal Saline) 1,000 mls @ 100 mls/hr IV ASDIRECTED THOM Last Admin: 09/27/17 17:44 Dose: 100 mls/hr Discontinued Medications Fentanyl (Sublimaze) Confirm Administered Dose 100 mcg .ROUTE .STK-MED ONE Stop: 09/27/17 17:53 Glycopyrrolate (Robinul) Confirm Administered Dose 0.2 mg .ROUTE .STK-MED ONE Stop: 09/27/17 17:53 Midazolam HCl (Versed 1 Mg/Ml) Confirm Administered Dose 2 mg .ROUTE .STK-MED ONE Stop: 09/27/17 17:53 Ondansetron HCl (Zofran) Confirm Administered Dose 4 mg .ROUTE .STK-MED ONE Stop: 09/27/17 17:53 Propofol (Diprivan 20 Ml) Confirm Administered Dose 400 mg .ROUTE .STK-MED ONE Stop: 09/27/17 17:53
[2017-09-27] MEDS ORDERED: Oxymetazoline 0.05% Nasal Spray 15 ML Bottle ONE (19:21)
--- NOTE | 2017-09-27 19:42 | PCM.OPNOTE ---
- General Post-Op/Procedure Note Date of Surgery/Procedure: 09/27/17 Operative Procedure(s): manipulation under anesthesia of fracture nasal bones Findings: Left nasal bone convexity; R concave and depressed fracture; lower 2/3 of nose to Right Healed abrasions over right nasal bone skin Pre Op Diagnosis: Fracture nasal bones Post-Op Diagnosis: Fracture nasal bones Anesthesia Technique: General LMA Primary Surgeon: Kimberlee Villalba Anesthesia Provider: Magnus Batres Fluid Replacement, Intraop: 600 EBL in mLs: 1 Condition: Good Free Text/Narrative:: An informed consent was obtained and patient was brought back to OR and laid supine. Time out was performed. Anesthesia - LMA Patient was appropriately positioned The Left nasal bone was digitally pushed towards midline. Using a combination of [place] forcep and intranasal butter knife elevator the right nasal bone was elevated out. The nasal bones were aligned towards midline. Skin was cleaned ; bacitracin was applied on the previously healed skin abrasions; steristrips were applied and an aquaplast nasal splint trimmed to size was applied over these. This was further secured with paper tape. This concluded the procedure and patient was handed back to anesthesia for recovery Follow up: In 1 week for removal of nasal splint Disposition: To PACU for recovery
[2017-09-27] MEDS ORDERED: Ibuprofen 400 MG Tab PO PRN (19:46)
--- NOTE | 2017-09-27 19:50 | PCM.POSTAN ---
POST ANESTHESIA ASSESSMENT - MENTAL STATUS Mental Status: Alert - VITAL SIGNS Pulse Rate: 46 SaO2: 100 Resp Rate: 16 Blood Pressure: 105/54 - RESPIRATORY Respiratory Status: Respiratory Rate WNL - CARDIOVASCULAR CV Status: Pulse Rate WNL - GASTROINTESTINAL GI Status: No Symptoms - PAIN Pain Score: 0 - POST OP HYDRATION Hydration Status: Adequate & Stable (Doing well will discharge to floor)
[2017-09-27 22:58] VITALS: BP 105/54
--- NOTE | 2017-09-27 22:58 | PCM48HPAN ---
Post Anesthesia Note - EVALUATION WITHIN 48HRS OF ANESTHETIC Vital Signs in Normal Range: Yes Patient Participated in Evaluation: Yes Respiratory Function Stable: Yes Airway Patent: Yes Cardiovascular Function Stable: Yes Hydration Status Stable: Yes Pain Control Satisfactory: Yes Nausea and Vomiting Control Satisfactory: Yes Mental Status Recovered: Yes Pulse Rate: 46 Resp Rate: 18 Blood Pressure: 105/54 - COMMENTS/OBSERVATIONS Free Text/Narrative:: Doing well. Awaiting discharge.
== END 2017-09-27 22:15 | disposition home or self-care (01) ==
LOC: MW.SDS 16:30 → MW.MS 16:33 → MW.SDS 22:15
PROVIDERS: ATTEND Otolaryngology
DX: S02.2XXA Fracture of nasal bones, initial encounter for closed fracture (principal); E66.9 Obesity, unspecified; F41.9 Anxiety disorder, unspecified; F32.9 Major depressive disorder, single episode, unspecified; F17.210 Nicotine dependence, cigarettes, uncomplicated; X58.XXXA Exposure to other specified factors, initial encounter; Z88.2 Allergy status to sulfonamides; Z68.30 Body mass index [BMI] 30.0-30.9, adult
CPT/HCPCS: 21315; A9270; J2250; J2405; J3010; J7040; J2704